=== PATIENT | male | born 1950 | race Caucasian/White ===

== ENCOUNTER 2017-10-13 05:35 | Day surgery (SDC) | payer BC ==
[~2017-10-13] VITALS: Ht 182.9 cm; Wt 113.4 kg
[2017-10-13] MEDS ORDERED: CLINDAMYCIN 600 mg/50mL D5W 50 ML IV ONE ×2 (06:00→06:06)
[2017-10-13] MEDS ORDERED: DOXA8TAB PO (06:45)
[2017-10-13] MEDS ORDERED: MULT-1089 PO (06:45)
[2017-10-13] MEDS ORDERED: ASPI81TA2 PO (06:45)
[2017-10-13] MEDS ORDERED: LOP600 PO (06:45)
[2017-10-13] MEDS ORDERED: MIDAZOLAM HCL 5 MG/5 ML VIAL IVP ONE (07:30)
[2017-10-13] MEDS ORDERED: LIDOCAINE/EPI MPF 1%1:200000 30 ML VIAL INJ ONE (07:30)
[2017-10-13] MEDS ORDERED: fentaNYL CITRATE/PF 100 MCG/2 ML AMP IVP ONE (07:30)
[2017-10-13] MEDS ORDERED: BACITRACIN ZINC 15 GM TOPICAL OINTMENT TP ONE (07:30)
[2017-10-13] MEDS ORDERED: SEVOFLURANE 15 MIN GAS INH ONE (07:30)
[2017-10-13] MEDS ORDERED: LABETALOL 100 MG/ 20ML VIAL IVP ONE (07:30)
[2017-10-13] MEDS ORDERED: PROPOFOL 200MG/ 20ML VIAL (DIPRIVAN) IV ONE (07:30)
[2017-10-13] MEDS ORDERED: LR 1,000 ML IV.SOLN IV ONE (07:30)
[2017-10-13] MEDS ORDERED: NS IRRIG SOLN 1000 ML IR ONE (07:30)
[2017-10-13] MEDS ORDERED: fentaNYL CITRATE/PF 100 MCG/2 ML AMP IVP PRN ×2 (09:45)
[2017-10-13] MEDS ORDERED: ONDANSETRON HCL 4 MG/2 ML VIAL IVP PRN ×2 (09:45→12:15)
[2017-10-13] MEDS ORDERED: KETOROLAC TROMETHAMINE 30 MG VIAL IVP PRN (09:45)
[2017-10-13] MEDS ORDERED: HYDROcodone/ACETAMIN 5-325 MG TAB (NORCO/ VICODIN) PO PRN (12:15)
[2017-10-13] MEDS ORDERED: ACETAMINOPHEN 500 MG TABLET PO PRN (12:15)
[2017-10-13] MEDS ORDERED: ONDANSETRON 4 MG ODT TAB PO PRN (12:15)
[2017-10-13] MEDS ORDERED: ONDANSETRON HCL 4 MG/2 ML VIAL ONE (12:44)
[2017-10-13] MEDS ORDERED: ONDANSETRON HCL 4 MG/2 ML VIAL IVP ONE (12:45)
[2017-10-13] MEDS ORDERED: METOCLOPRAMIDE HCL 10 MG/2 ML VIAL IVP ONE (13:30)
[2017-10-13 13:32] VITALS: BP_SYST 123
== END 2017-10-13 16:10 | disposition home or self-care (01) ==
LOC: SMU 05:35 → SDS 05:35
PROVIDERS: ATTEND Otolaryngology
DX: D11.0 Benign neoplasm of parotid gland (principal); G47.33 Obstructive sleep apnea (adult) (pediatric); I10 Essential (primary) hypertension; E78.5 Hyperlipidemia, unspecified; Z79.899 Other long term (current) drug therapy; Z88.8 Allergy status to other drugs, medicaments and biological substances; E66.3 Overweight
CPT/HCPCS: 38720; 42415; 88307; C1782; J2250; J2405; J2704; J2765; J3010; J3490 ×2; J7120; 88305